=== PATIENT | male | born 1965 ===

== ENCOUNTER 2020-05-12 08:21 | Outpatient (CLI) | payer OTHER ==
[~2020-05-12 08:21] MED LIST: DICY20TA PO; PROTONIX40 MG PO
== END 2020-05-12 12:49 | disposition home or self-care (01) ==
LOC: SONOGRAMA 08:21
PROVIDERS: ATTEND Internal Medicine Cardiovascular Disease
DX: M12.822 Other specific arthropathies, not elsewhere classified, left elbow (principal); M12.812 Other specific arthropathies, not elsewhere classified, left shoulder